=== PATIENT | male | born 1955 | race Caucasian/White ===

== ENCOUNTER → 2017-09-11 | Outpatient (CLI) | payer OTHER ==
[~2017-09-11] MED LIST: DUTA1CPM PO; IBUP50DR45 PO; LORA5SOL4 PO; POTA10CA PO
== END | disposition home or self-care (01) ==
LOC: LAB 11:43
PROVIDERS: ATTEND Urology
DX: Z12.5 Encounter for screening for malignant neoplasm of prostate (principal); N40.1 Benign prostatic hyperplasia with lower urinary tract symptoms
CPT/HCPCS: G0103

== ENCOUNTER 2017-10-25 13:43 | Emergency (ER) | payer OTHER ==
[2017-10-25 14:54] LABS: INFLUENZA A PATIENT NEGATIVE (NEGATIVE); INFLUENZA B PATIENT NEGATIVE (NEGATIVE)
[2017-10-25] MEDS ORDERED: IPRATRPIUM/ALBUTEROL 0.5/2.5MG 3 ML NEBU. NEB ONE (15:30)
[2017-10-25] MEDS ORDERED: HYDROcodone/APAP 5/325MG 1 TAB TABLET PO ONE (15:30)
[2017-10-25] MEDS ORDERED: AMOX1TAB61 PO (15:53)
[2017-10-25] MEDS ORDERED: HYDR115S2 PO (15:53)
[2017-10-25] MEDS ORDERED: METH4TAB2 PO (15:53)
--- NOTE | 2017-10-25 15:59 | PHYS DOC ---
Past History Past Medical History: No Pertinent History Smoking: Non-smoker Adult General Chief Complaint Chief Complaint: FLU SYMPTOM HPI HPI 62-year-old male patient complaining of nasal congestion and sinus pain and subjective fever and chills and productive cough for the last 3 days with headache and myalgia that didn't get better with [id number] medication. Patient states he had shortness of breath because of unable to breath through his nose and complaining of generalized weakness. Review of Systems Review of Systems Constitutional: Reports subjective fever and chills[] Eyes: Denies change in visual acuity, redness, or eye pain [] HENT: Reports nasal congestion and earache and sore throat Respiratory: Coarse cough and shortness of breath] Cardiovascular: No additional information not addressed in HPI [] GI: Denies abdominal pain, nausea, vomiting, bloody stools or diarrhea [] : Denies dysuria or hematuria [] Musculoskeletal: Denies back pain or joint pain [] Integument: Denies rash or skin lesions [] Neurologic: Denies headache, focal weakness or sensory changes [] Endocrine: Denies polyuria or polydipsia [] All other systems were reviewed and found to be within normal limits, except as documented in this note. Current Medications Current Medications Current Medications Medications (Trade) Dose Ordered Sig/Ti Start Time Stop Time Status Last Admin Dose Admin Acetaminophen/ Hydrocodone Bitart (Lortab 5/325) 1 tab 1X ONCE 10/25/17 15:30 10/25/17 15:31 DC 10/25/17 15:24 1 TAB Albuterol/ Ipratropium (Duoneb) 3 ml 1X ONCE 10/25/17 15:30 10/25/17 15:31 DC 10/25/17 15:23 3 ML Allergies Allergies Allergies Coded Allergies Type Severity Reaction Last Updated Verified codeine Allergy Mild 09/27/16 Yes Physical Exam Physical Exam Constitutional: Well developed, well nourished, moderate distress, non-toxic appearance. [] HENT: Normocephalic, atraumatic, bilateral external ears normal, oropharynx moist, pharyngeal erythema, no oral exudates, nose normal. [] Eyes: PERRLA, EOMI, conjunctiva normal, no discharge. [] Neck: Normal range of motion, no tenderness, supple, no stridor. [] Cardiovascular: Tachycardia, no murmur [] Lungs & Thorax: Bilateral breath sounds clear to auscultation [] Abdomen: Bowel sounds normal, soft, no tenderness, no masses, no pulsatile masses. [] Skin: Warm, dry, no erythema, no rash. [] Back: No tenderness, no CVA tenderness. [] Extremities: No tenderness, no cyanosis, no clubbing, ROM intact, no edema. [] Neurologic: Alert and oriented X 3, normal motor function, normal sensory function, no focal deficits noted. [] Psychologic: Affect normal, judgement normal, mood normal. [] Current Patient Data Vital Signs Vital Signs Date Time Temp Pulse Resp B/P (MAP) Pulse Ox O2 Delivery O2 Flow Rate FiO2 10/25/17 15:26 97 Room Air 10/25/17 15:24 18 Lab Results Laboratory Tests Test 10/25/17 14:02 Influenza Type A (Rapid) Negative (NEGATIVE) Influenza Type B (Rapid) Negative (NEGATIVE) EKG EKG [] Radiology/Procedures Radiology/Procedures [] Course & Med Decision Making Course & Med Decision Making Pertinent Labs reviewed. (See chart for details) [] Dragon Disclaimer Dragon Disclaimer This electronic medical record was generated, in whole or in part, using a voice recognition dictation system. Departure Departure: Impression: Primary Impression: Acute sinusitis Additional Impressions: Upper respiratory infection Tachycardia Disposition: 01 HOME, SELF-CARE (At 1550) Condition: IMPROVED Referrals: RONNY DUENAS (PCP) Patient Instructions: Sinusitis, Upper Respiratory Infection, Adult Additional Instructions: Drink plenty of liquids Follow-up with your primary care physician in 3-5 days Return to ER if not getting better Scripts Hydrocodone/Chlorphen P-Stirex (Tussionex Pennkinetic Susp) 115 Ml Nafisa.er.12h 5 ML PO BID, #120 ML Prov: AAKASH PETERS MD 10/25/17 Methylprednisolone (MEDROL) 4 Mg Tab.ds.pk 1 PKG PO UD, #1 PKG Prov: AAKASH PETERS MD 10/25/17 Amoxicillin/Potassium Clav (AUGMENTIN 875-125 TABLET) 1 Each Tablet 1 TAB PO BID, #14 TAB Prov: AAKASH PETERS MD 10/25/17 Problem Qualifiers AAKASH PETERS MD Oct 25, 2017 15:59
[2017-10-25 16:11] VITALS: BP 142/66
== END 2017-10-25 16:11 | disposition home or self-care (01) ==
LOC: ER 14:14
DX: J01.90 Acute sinusitis, unspecified (principal); R00.0 Tachycardia, unspecified; Z88.5 Allergy status to narcotic agent
CPT/HCPCS: 87804; 94640; 99284; J7620

== ENCOUNTER → 2019-11-28 | Outpatient (CLI) | payer OTHER ==
[~2019-11-28] MED LIST changes: +AMOX1TAB61 PO; +HYDR115S2 PO; -LORA5SOL4 PO; +LORA5SOL43 PO; +METH4TAB2 PO
[2019-11-28 15:34] LABS: BILIRUBIN,URINE NEG (NEG); CLARITY,URINE CLOUDY; COLOR,URINE YELLOW; GLUCOSE,URINE NEG (NEG); UROBILINOGEN,URINE 0.2 mg/dL (0.2 mg/dL)
[2019-11-28 15:35] LABS: BACTERIA,URINE 0 /HPF (0-FEW); NITRITE,URINE NEG (NEG); SQUAMOUS EPITHELIAL CELL,UR OCC /LPF
--- NOTE | 2019-11-29 08:26 | RAD ---
KUB Clinical Indication: Abdominal pain. Comparison: CT abdomen and pelvis with and without contrast, 09/27/2016. Findings: The lateralmost abdomen in the upper abdomen are excluded. The bowel gas pattern is nonobstructive. No dilated small bowel. Scattered stool in the proximal colon. No definite right renal calculus. There is a left renal calculus likely localizing to the left renal pelvis, similar to prior study. The calculus measures up to 1.5 cm. There is probably a second tiny adjacent calculus. There is posterior decompression of L3-L5. There may also be posterior decompression of L2. There is degenerative spondylosis. IMPRESSION: 1. Nonobstructive bowel gas pattern. 2. Left renal calculi. Electronically signed by: Arnoldo Ivey MD (11/29/2019 8:23 AM) [id number]
[2019-11-30 03:07] LABS: PSA FREE 0.49 ng/mL; PSA TOTAL 3.5 ng/mL (0.0-4.0)
== END | disposition home or self-care (01) ==
LOC: DXRAD 14:19
PROVIDERS: ATTEND Urology
DX: N20.0 Calculus of kidney (principal)
CPT/HCPCS: 36415; 74018; 81001; 84153; 84154; 87086

== ENCOUNTER → 2020-02-18 | Outpatient (CLI) | payer OTHER ==
--- NOTE | 2020-02-18 12:10 | RAD ---
KUB compared to similar exam dated 11/28/2019 for nephrolithiasis, status post laser surgery. FINDINGS: The previously seen left renal calculi are not evident today. No ureteral calculi are identified. No bladder calculi are seen. Bowel gas pattern is nonobstructive and nonspecific. Postsurgical changes of the lumbar spine including bilateral laminectomies from L2 through L5 are stable. IMPRESSION: 1. Resolved left nephrolithiasis. 2. Nonobstructive nonspecific bowel gas pattern. Electronically signed by: Ky Gu MD (02/18/2020 12:07 PM) [id number]
== END | disposition home or self-care (01) ==
LOC: RAD 11:32
PROVIDERS: ATTEND Urology
DX: N20.0 Calculus of kidney (principal)
CPT/HCPCS: 74018

== ENCOUNTER → 2022-01-19 | Outpatient (CLI) | payer OTHER ==
--- NOTE | 2022-01-20 16:27 | RAD ---
Study: XR BILAT FEET 3 VIEWS Indication: Foot pain. No recent injury. Comparison: None available. Findings: Right foot: Severe great toe MTP joint arthrosis with [id number]. No advanced arthrosis elsewhere. Prominent Ac hilles insertion enthesophyte formation. Os peroneum. Left foot: Moderate arthrosis at the great toe MTP joint bipartite medial hallux sesamoid. No advanced arthrosis elsewhere throughout the foot. Tiny Achilles insertion enthesophyte. Impression: Right and left feet: 1. No acute fracture or traumatic malalignment. 2. 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 3. Prominent Achilles insertion enthesophyte formation on the right. Electronically signed by: BEVERLY BEEBE MD (01/20/2022 4:24 PM) [id number]
== END ==
LOC: RAD 12:07
PROVIDERS: ATTEND Family Medicine
DX: M19.071 Primary osteoarthritis, right ankle and foot (principal); M19.072 Primary osteoarthritis, left ankle and foot; M19.171 Post-traumatic osteoarthritis, right ankle and foot; M19.172 Post-traumatic osteoarthritis, left ankle and foot; M77.51 Other enthesopathy of right foot and ankle; M72.2 Plantar fascial fibromatosis
CPT/HCPCS: 73630-50